=== PATIENT | female | born 1940 | race Caucasian/White ===

== ENCOUNTER 2017-05-02 19:49 | Inpatient (IN) | payer MEDICARE, BC ==
[2017-05-02] MEDS ORDERED: NITROGLYCERIN SL TABS 0.4 MG TAB SUBLINGUAL PRN (20:10)
[2017-05-02] MEDS ORDERED: HEPARIN SODIUM,PORCINE 5,000 UNIT/ML 1 ML VIAL IV PRN (20:10)
[2017-05-02] MEDS ORDERED: MORPHINE SULFATE 4 MG/ML SYRINGE IV PRN (20:10)
[2017-05-02] MEDS ORDERED: ASPIRIN 81 MG PO STA (20:10)
--- NOTE | 2017-05-02 20:14 | ED ---
General Adult HPI - General Chief complaint: Recheck/Abnormal Lab/Rx Stated complaint: Cardiac Time Seen by Provider: 05/02/17 19:56 Source: patient, EMS, RN notes reviewed, old records reviewed Mode of arrival: EMS Limitations: no limitations - History of Present Illness Initial comments: This is a 77-year-old female the ER for evaluation. Patient accepted in transfer for non-ST elevated ME. Patient is chest pain is resolved, patient without shortness of breath. Patient without other significant complaint currently. Per EMS patient has troponin elevated through 3 hour window - Related Data Home Medications Medication Instructions Recorded Confirmed Aspirin 81 mg PO DAILY 05/02/17 05/02/17 Colloidal Oatmeal [Eucerin Eczema 1 applic TOPICAL DAILY@199905/02/17 05/02/17 Relief] Diazepam [Valium] 5 mg PO BID PRN 05/02/17 05/02/17 Donepezil [Aricept] 10 mg PO HS 05/02/17 05/02/17 Gabapentin [Neurontin] 600 mg PO TID 05/02/17 05/02/17 Haloperidol Decanoate [Haldol D] 100 mg IM QMONTH 05/02/17 05/02/17 Hydrochlorothiazide [Hydrodiuril] 25 mg PO DAILY 05/02/17 05/02/17 Levothyroxine Sodium [Synthroid] 25 mcg PO DAILY 05/02/17 05/02/17 Memantine [Namenda] 10 mg PO BID 05/02/17 05/02/17 Mirtazapine [Remeron] 15 mg PO HS 05/02/17 05/02/17 NIFEdipine [Procardia XL] 30 mg PO DAILY 05/02/17 05/02/17 QUEtiapine [SEROquel] 100 mg PO HS 05/02/17 05/02/17 Venlafaxine HCl [Effexor XR] 75 mg PO DAILY 05/02/17 05/02/17 Venlafaxine HCl [Effexor XR] 150 mg PO DAILY 05/02/17 05/02/17 hydrOXYzine HCL [Atarax] 50 mg PO Q6H PRN 05/02/17 05/02/17 traMADol HCL [Ultram] 50 mg PO BID PRN 05/02/17 05/02/17 Allergies Allergy/AdvReac Type Severity Reaction Status Date / Time adhesive Allergy Unknown Verified 05/02/17 20:13 buprenorphine [From Butrans] Allergy Unknown Verified 05/02/17 20:13 losartan Allergy Unknown Verified 05/02/17 20:13 Review of Systems ROS Statement: Those systems with pertinent positive or pertinent negative responses have been documented in the HPI. ROS Other: All systems not noted in ROS Statement are negative. Past Medical History Past Medical History: Cancer, Hypertension Past Surgical History: Back Surgery, Hysterectomy, Orthopedic Surgery Additional Past Surgical History / Comment(s): felix knee,lt lumpectomy Past Psychological History: Anxiety, Depression Smoking Status: Former smoker Past Alcohol Use History: None Reported Past Drug Use History: None Reported General Exam Limitations: no limitations General appearance: alert, in no apparent distress Head exam: Present: atraumatic, normocephalic, normal inspection Eye exam: Present: normal appearance, PERRL, EOMI. Absent: scleral icterus, conjunctival injection, periorbital swelling ENT exam: Present: normal exam, mucous membranes moist Neck exam: Present: normal inspection. Absent: tenderness, meningismus, lymphadenopathy Respiratory exam: Present: normal lung sounds bilaterally. Absent: respiratory distress, wheezes, rales, rhonchi, stridor Cardiovascular Exam: Present: regular rate, normal rhythm, normal heart sounds. Absent: systolic murmur, diastolic murmur, rubs, gallop, clicks GI/Abdominal exam: Present: soft, normal bowel sounds. Absent: distended, tenderness, guarding, rebound, rigid Extremities exam: Present: normal inspection, full ROM, normal capillary refill. Absent: tenderness, pedal edema, joint swelling, calf tenderness Back exam: Present: normal inspection Neurological exam: Present: alert, oriented X3, CN II-XII intact Psychiatric exam: Present: normal affect, normal mood Skin exam: Present: warm, dry, intact, normal color. Absent: rash Course Vital Signs 05/02/17 19:55 Temperature 98.3 F Pulse Rate 80 Respiratory 20 Rate Blood Pressure 146/83 O2 Sat by Pulse 93 L Oximetry - Reevaluation(s) Reevaluation #1: 05/02/17 20:39 Chest or paperwork is thoroughly reviewed EKG Findings - EKG Comments: EKG Findings:: EKG shows normal sinus rhythm rate of 74, NH 122, QRS 90, QTc 461 , no ST elevation Medical Decision Making - Medical Decision Making 77 female the ER for evaluation of chest pain. Persistent chest pain. Patient had elevated troponin and increasing troponin per transferring hospital. Patient at this point is without chest pain Disposition Clinical Impression: NSTEMI (non-ST elevated myocardial infarction) Disposition: ADMITTED IP TO THIS HOSP Condition: Serious Referrals: Woody Stover MD [Primary Care Provider] - 1-2 days
[2017-05-02] MEDS ORDERED: SODIUM CHLORIDE 0.9% 1,000 ML IV STA (20:43)
[2017-05-02] MEDS: HEPARIN SOD,PORK IN 0.45% NACL 25,000 UNIT in 0.45% NACL 1 500ML.BAG IV SCH (21:09)
[2017-05-02] MEDS: METOPROLOL TARTRATE 25 MG TAB PO SCH (21:10)
[2017-05-02 21:25] LABS: Basophils % (A) 0 %; Eosinophils # (A) 0.1 k/uL (0-0.7); Eosinophils % (A) 1 %; HCT 41.6 % (34.0-46.0); Lymphocytes # (A) 2.2 k/uL (1.0-4.8); Lymphocytes % (A) 28 %; MCH 28.5 pg (25.0-35.0); MCHC 33.6 g/dL (31.0-37.0); MCV 84.7 fL (80.0-100.0); Mean Platelet Volume 7.6; Monocytes # (A) 0.4 k/uL (0-1.0); Monocytes % (A) 5 %; Neutrophils # (A) 5.1 k/uL (1.3-7.7); Neutrophils % (A) 64 %; Platelet Count 275 k/uL (150-450); RBC 4.91 m/uL (3.80-5.40); RDW 13.2 % (11.5-15.5); WBC 7.9 k/uL (3.8-10.6)
[2017-05-02 21:40] LABS: INR 1.2 (<1.2); Partial Thromboplastin Time 45.6 sec (22.0-30.0); Prothrombin Time 11.5 sec (9.0-12.0)
[2017-05-02 21:41] LABS: Anion Gap 9 mmol/L; Blood Urea Nitrogen 25 mg/dL (7-17); Carbon Dioxide 29 mmol/L (22-30); Chloride 103 mmol/L (98-107); Glucose 107 mg/dL (74-99); Potassium 3.7 mmol/L (3.5-5.1); Sodium 141 mmol/L (137-145)
[2017-05-02 21:42] LABS: ALT 20 U/L (9-52); AST 21 U/L (14-36); Alkaline Phosphatase 110 U/L (38-126); Calcium 9.7 mg/dL (8.4-10.2); Lipase 119 U/L (23-300); Total Bilirubin 0.4 mg/dL (0.2-1.3); Total Protein 6.9 g/dL (6.3-8.2)
[2017-05-02 21:54] LABS: Creatine Kinase MB 2.3 ng/mL (0.0-2.4)
[2017-05-02 21:57] LABS: Troponin I 0.349 ng/mL (0.000-0.034)
[2017-05-03 03:36] LABS: Platelet Count 231 k/uL (150-450)
[2017-05-03 03:58] LABS: Cholesterol 220 mg/dL (<200); HDL Cholesterol 65 mg/dL (40-60); LDL Cholesterol,Calculated 142 mg/dL (0-99); Triglycerides 65 mg/dL (<150)
[2017-05-03 04:14] LABS: Troponin I 0.272 ng/mL (0.000-0.034)
[2017-05-03] MEDS ORDERED: ASPIRIN 325 MG TAB PO SCH (09:00)
[2017-05-03 10:10] LABS: Creatine Kinase MB 1.9 ng/mL (0.0-2.4)
[2017-05-03 10:18] LABS: Troponin I 0.169 ng/mL (0.000-0.034)
[2017-05-03] MEDS: METOPROLOL TARTRATE 25 MG TAB PO SCH ×2 (10:36→20:09)
[2017-05-03] MEDS: ATORVASTATIN 80 MG TAB PO SCH (10:36)
--- NOTE | 2017-05-03 13:55 | P.CRDCN ---
History of Present Illness History of present illness: Cardiac G consulted for an abnormal troponin. The patient was transferred from [facility]. She was sent there by her primary physician the letter visiting physician at home. According to the from [facility] she was found to have a mild facial droop and she was stumbling and falling and therefore sent to the hospital. A troponin was drawn and this was abnormal the second troponin that was drawn was also abnormal and she was transferred for possible non-Q-wave myocardial infarction. However the note clearly states that she denied any chest discomfort no shortness of breath no palpitations no cardiac symptoms prior to that. However it also states that 3 days prior to this she had a staring spell Review of systems: No fever chills or rigors, no cough, phlegm or expectoration , no nausea, vomiting or diarrhea, no hematuria, dysuria, no musculoskeletal complaints, no strokes or seizures, no skin lesions. When I interviewed her today she categorically denied any chest discomfort no dizziness lightheadedness palpitations or loss of consciousness. However she does carry a diagnosis of dementia. 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 [place] Home medications are reviewed and are documented in the chart ALLERGIES were reviewed and include losartan adhesive tape Past history of hypertension hysterectomy orthopedic surgery lumpectomy Past history of smoking no reported alcohol use On examination she is lying flat in bed very comfortable, answering most questions appropriately Heart rate in the 50s, afebrile 97.3F respirations are normal blood pressure 149/77 and 173/85 mmHg prior blood pressures were within normal limits Abdomen soft nontender Breath sounds are clear no rhonchi no crackles Extremities are warm no edema Twelve-lead ECG the first one showed sinus rhythm no abnormalities no ST segment abnormalities Labs are reviewed Hemoglobin 14, electrolytes normal, BUN 25, creatinine 0.71 Troponins 0.349, 0.272 and 0.169 LFTs normal Electrolytes normal LDL 142, HDL 65, total cholesterol 220 Impression Patient asymptomatic from a cardiac standpoint with abnormal troponins consistent with myocardial injury and a clear downward trend Normal ECG on admission Elevated LDL of 142, elevated total cholesterol 220, high HDL Hypertension ALLERGY to losartan by prior history Suggest 2 baby aspirins Atorvastatin 80 mg by mouth daily Continue metoprolol 2-D echo and Doppler study, preliminary result indicates preserved LV systolic function Watch blood pressure Continue IV heparin and discontinue tomorrow Medical management for CAD In view of her history of facial drooping and history of falls a neurology evaluation would be indicated Carotid studies Past Medical History Past Medical History: Cancer, Hypertension Additional Past Medical History / Comment(s): L breast cancer with lumpectomy and radiation, lumbago, chronic low back pain. History of Any Multi-Drug Resistant Organisms: None Reported Past Surgical History: Back Surgery, Hysterectomy, Orthopedic Surgery Additional Past Surgical History / Comment(s): felix knee arthroscopies ,lt breast lumpectomy. Past Anesthesia/Blood Transfusion Reactions: No Reported Reaction Smoking Status: Former smoker - Past Family History Father Family Medical History: No Reported History Additional Family Medical History / Comment(s): Father was healthy and lived into his 90s. Mother Family Medical History: No Reported History Additional Family Medical History / Comment(s): Mother was healthy and lived to be 94 yrs. Medications and Allergies Home Medications Medication Instructions Recorded Confirmed Type Aspirin 81 mg PO DAILY 05/02/17 05/02/17 History Colloidal Oatmeal [Eucerin Eczema 1 applic TOPICAL DAILY@199905/02/17 05/02/17 History Relief] Diazepam [Valium] 5 mg PO BID PRN 05/02/17 05/02/17 History Donepezil [Aricept] 10 mg PO HS 05/02/17 05/02/17 History Gabapentin [Neurontin] 600 mg PO TID 05/02/17 05/02/17 History Haloperidol Decanoate [Haldol D] 100 mg IM QMONTH 05/02/17 05/02/17 History Hydrochlorothiazide [Hydrodiuril] 25 mg PO DAILY 05/02/17 05/02/17 History Levothyroxine Sodium [Synthroid] 25 mcg PO DAILY 05/02/17 05/02/17 History Memantine [Namenda] 10 mg PO BID 05/02/17 05/02/17 History Mirtazapine [Remeron] 15 mg PO HS 05/02/17 05/02/17 History NIFEdipine [Procardia XL] 30 mg PO DAILY 05/02/17 05/02/17 History QUEtiapine [SEROquel] 100 mg PO HS 05/02/17 05/02/17 History Venlafaxine HCl [Effexor XR] 75 mg PO DAILY 05/02/17 05/02/17 History Venlafaxine HCl [Effexor XR] 150 mg PO DAILY 05/02/17 05/02/17 History hydrOXYzine HCL [Atarax] 50 mg PO Q6H PRN 05/02/17 05/02/17 History traMADol HCL [Ultram] 50 mg PO BID PRN 05/02/17 05/02/17 History Allergies Allergy/AdvReac Type Severity Reaction Status Date / Time adhesive Allergy Unknown Verified 05/02/17 20:13 buprenorphine [From Butrans] Allergy Unknown Verified 05/02/17 20:13 losartan Allergy Unknown Verified 05/02/17 20:13 Physical Exam Vitals: Vital Signs Temp Pulse Pulse Resp BP BP Pulse Ox 05/03/17 10:40 55 L 16 173/85 95 05/03/17 07:50 97.3 F L 58 L 16 149/77 96 05/03/17 06:37 58 L 18 127/52 98 05/03/17 05:35 53 L 18 138/73 96 05/03/17 04:00 45 L 15 125/69 95 05/03/17 03:13 48 L 18 125/65 96 05/03/17 02:00 46 L 15 119/61 94 L 05/03/17 01:00 45 L 20 129/66 97 05/03/17 00:00 45 L 22 126/60 94 L 05/02/17 23:00 58 L 20 134/89 96 05/02/17 22:00 98.6 F 60 20 145/76 96 05/02/17 21:00 59 L 20 125/78 95 05/02/17 19:55 98.3 F 80 20 146/83 93 L Intake and Output 05/02/17 05/03/17 05/03/17 22:59 06:59 14:59 Other: Weight 108.862 kg Results 05/03/17 03:18 05/02/17 21:01 Cardiac Enzymes 05/02/17 05/02/17 05/03/17 Range/Units 21:01 21:01 03:18 AST 21 (14-36) U/L CK-MB (CK-2) 2.3 2.0 (0.0-2.4) ng/mL Troponin I 0.349 H* 0.272 H* (0.000-0.034) ng/mL 05/03/17 Range/Units 09:12 AST (14-36) U/L CK-MB (CK-2) 1.9 (0.0-2.4) ng/mL Troponin I 0.169 H* (0.000-0.034) ng/mL Coagulation 05/02/17 05/03/17 Range/Units 21: 03:18 PT 11.5 (9.0-12.0) sec APTT 45.6 H 51.3 H (22.0-30.0) sec Lipids 05/03/17 Range/Units 03:18 Triglycerides 65 (<150) mg/dL Cholesterol 220 H (<200) mg/dL HDL Cholesterol 65 H (40-60) mg/dL CBC 05/02/17 05/03/17 Range/Units 21: 03:18 WBC 7.9 (3.8-10.6) k/uL RBC 4.91 (3.80-5.40) m/uL Hgb 14.0 (11.4-16.0) gm/dL Hct 41.6 (34.0-46.0) % Plt Count 275 231 (150-450) k/uL Comprehensive Metabolic Panel 05/02/17 Range/Units 21:01 Sodium 141 (137-145) mmol/L Potassium 3.7 (3.5-5.1) mmol/L Chloride 103 (98-107) mmol/L Carbon Dioxide 29 (22-30) mmol/L BUN 25 H (7-17) mg/dL Creatinine 0.71 (0.52-1.04) mg/dL Glucose 107 H (74-99) mg/dL Calcium 9.7 (8.4-10.2) mg/dL AST 21 (14-36) U/L ALT 20 (9-52) U/L Alkaline Phosphatase 110 (38-126) U/L Total Protein 6.9 (6.3-8.2) g/dL Albumin 4.0 (3.5-5.0) g/dL Current Medications Generic Name Dose Route Start Last Admin Trade Name Freq PRN Reason Stop Dose Admin Aspirin 325 mg 05/03/17 09:00 05/03/17 10:36 Aspirin PO 325 mg DAILY JOHANA Administration Atorvastatin Calcium 80 mg 05/03/17 09:00 05/03/17 10:36 Lipitor PO 80 mg DAILY JOHANA Administration Heparin Sodium (Porcine) 0 unit 05/02/17 20:10 Heparin IV Q6HR PRN Low PTT Protocol Heparin Sodium/Sodium Chloride 500 mls @ 20.03 mls/hr 05/02/17 20:15 21:09 25,000 unit/ Sodium Chloride IV 9.2 units/kg/hr .Q24H JOHANA 20.03 mls/hr Protocol Administration 9.2 UNITS/KG/HR Metoprolol Tartrate 25 mg 05/02/17 21:00 05/03/17 10:36 Lopressor PO 25 mg BID JOHANA Administration Morphine Sulfate 4 mg 05/02/17 20:10 Morphine Sulfate (Inj) IV Q5M PRN Chest Pain Nitroglycerin 0.4 mg 05/02/17 20:10 Nitrostat SUBLINGUAL Q5M PRN Chest Pain Intake and Output 05/02/17 05/03/17 05/03/17 22:59 06:59 14:59 Other: Weight 108.862 kg 05/03/17 03:18 05/02/17 21:01
[2017-05-03] MEDS ORDERED: traMADol 50 MG TAB PO PRN (14:33)
[2017-05-03] MEDS ORDERED: MORPHINE ORAL SOLN 10 MG/5 ML CUP PO PRN (14:39)
[2017-05-03] MEDS: GABAPENTIN 300 MG CAP PO SCH ×2 (16:14→20:09)
[2017-05-03] MEDS: NIFEdipine XL 30 MG TAB.ER.24 PO SCH (16:14)
--- NOTE | 2017-05-03 17:47 | US ---
EXAMINATION TYPE: US carotid duplex BILAT DATE OF EXAM: 05/03/2017 COMPARISON: NONE CLINICAL HISTORY: Facial droop. Very confused patient who was unable to cooperate with examiner, technically difficult study. EXAM MEASUREMENTS: RIGHT: Peak Systolic Velocity (PSV) cm/sec ----- Right CCA: 72.9 ----- Right ICA: 64.2 ----- Right ECA: 107.3 ICA/CCA ratio: 0.9 RIGHT: End Diastole cm/sec ----- Right CCA: 12.9 ----- Right ICA: 7.7 ----- Right ECA: 12.1 LEFT: Peak Systolic Velocity (PSV) cm/sec ----- Left CCA: 71.9 ----- Left ICA: 59.2 ----- Left ECA: 89.0 ICA/CCA ratio: 0.8 LEFT: End Diastole cm/sec ----- Left CCA: 14.8 ----- Left ICA: 12.1 ----- Left ECA: 9.9 VERTEBRALS (direction of flow): Right Vertebral: Antegrade Left Vertebral: Antegrade Rhythm: Arrhythmia Unable to obtain distal ICA on left due to poor patient cooperation. No elevated velocities seen bilaterally. IMPRESSION: No hemodynamic significant stenosis of the proximal internal carotid arteries bilaterall y by Doppler criteria within the limitations of the exam, indirect measurement of carotid stenosis. L imited exam.
--- NOTE | 2017-05-03 18:02 | ECHOF ---
Referral Reason:[facility] MEASUREMENTS -------- HEIGHT: 175.3 cm WEIGHT: 112.9 kg BP: RVIDd: 2.8 cm (< 3.3) IVSd: 1.2 cm (0.6 - 1.1) LVIDd: 4.4 cm (3.9 - 5.3) LVPWd: 1.1 cm (0.6 - 1.1) IVSs: 1.4 cm LVIDs: 3.5 cm LVPWs: 1.2 cm LAESV Index (A-L): 23.51 ml/m Ao Diam: 3.4 cm (2.0 - 3.7) AV Cusp: 2.1 cm (1.5 - 2.6) LA Diam: 3.9 cm (2.7 - 3.8) MV EXCURSION: 16.312 mm (> 18.000) MV EF SLOPE: 94 mm/s (70 - 150) EPSS: 0.9 cm MV E Adrian: 0.48 m/s MV DecT: 171 ms MV A Adrian: 0.61 m/s MV E/A Ratio: 0.79 RAP: 5.00 mmHg RVSP: 11.16 mmHg FINDINGS -------- Sinus rhythm. This was a technically adequate study. The left ventricular size is normal. There is mild concentric left ventricular hypertrophy. Overa ll left ventricular systolic function is low-normal with, an EF between 50 - 55 %. The right ventricle is normal in size. Normal LA size by volume 22+/-6 ml/m2. The right atrial size is normal. The aortic valve is trileaflet, and appears structurally normal. No aortic stenosis or regurgitation. Mild mitral regurgitation is present. Mild tricuspid regurgitation present. There is no evidence of pulmonary hypertension. The right v entricular systolic pressure, as measured by Doppler, is 11.16mmHg. The pulmonic valve was not well visualized. The aortic root size is normal. There is no pericardial effusion. CONCLUSIONS -------- 1. The left ventricular size is normal. 2. There is mild concentric left ventricular hypertrophy. 3. Overall left ventricular systolic function is low-normal with, an EF between 50 - 55 %. 4. The aortic valve is trileaflet, and appears structurally normal. No aortic stenosis or regurgitati on. 5. Mild mitral regurgitation is present. 6. Mild tricuspid regurgitation present. 7. There is no evidence of pulmonary hypertension. 8. The right ventricular systolic pressure, as measured by Doppler, is 11.16mmHg. 9. The pulmonic valve was not well visualized. 10. The aortic root size is normal. 11. There is no pericardial effusion. [employer]YCHOLOGIST: Victoria Cisneros RDCS
[2017-05-03] MEDS ORDERED: NON-FORMULARY DRUG (Colloidal Oatmeal [Eucerin Eczema Relief] 1 APPLIC) TOPICAL SCH (20:00)
[2017-05-03] MEDS: MIRTAZAPINE 15 MG TAB PO SCH (20:09)
[2017-05-03] MEDS: DONEPEZIL 10 MG TAB PO SCH (20:09)
[2017-05-03] MEDS: MEMANTINE 10 MG TAB PO SCH (20:09)
[2017-05-03] MEDS: HEPARIN SOD,PORK IN 0.45% NACL 25,000 UNIT in 0.45% NACL 1 500ML.BAG IV SCH (22:14)
--- NOTE | 2017-05-03 22:15 | P.HPIM ---
History of Present Illness H&P Date: 05/03/17 Chief Complaint: Abnormal troponin Patient is a 77 old female with a known history of hypertension, dementia and depression and also history of left breast cancer with lumpectomy and radiation as well as chronic back pain was initially presented to [facility] due to related troponin level. Initially patient presented to [facility] due to facial droop and she was stumbling and falling. Currently patient could not provide any history. Patient does not know why was she was sent to Hospital. Otherwise patient denied any chest pain or shortness of breath. No palpitations. No fever no chills. Denied any nausea vomiting abdominal pain or diarrhea. Denied any hematuria or dysuria. Patient does not have a history of seizures or stroke in the past. Patient is a poor historian and history was taken from the medical records and ER note as well as transfer documents. CT head showed no acute intracranial abnormality. Cerebral Atrophy and chronic small wasn't ischemic changes were noted. EKG showed sinus rhythm. No ST-T wave abnormality Troponin 0.349, 0.272 and 0.169 D-dimer not elevated at 0.28 BNP is pending Review of Systems Complete review of systems could not be obtained from the patient Past Medical History Past Medical History: Cancer, Hypertension Additional Past Medical History / Comment(s): L breast cancer with lumpectomy and radiation, lumbago, chronic low back pain. History of Any Multi-Drug Resistant Organisms: None Reported Past Surgical History: Back Surgery, Hysterectomy, Orthopedic Surgery Additional Past Surgical History / Comment(s): felix knee arthroscopies ,lt breast lumpectomy. Past Anesthesia/Blood Transfusion Reactions: No Reported Reaction Smoking Status: Former smoker - Past Family History Father Family Medical History: No Reported History Additional Family Medical History / Comment(s): Father was healthy and lived into his 90s. Mother Family Medical History: No Reported History Additional Family Medical History / Comment(s): Mother was healthy and lived to be 94 yrs. Medications and Allergies Home Medications Medication Instructions Recorded Confirmed Type Aspirin 81 mg PO DAILY 05/02/17 05/02/17 History Colloidal Oatmeal [Eucerin Eczema 1 applic TOPICAL DAILY@199905/02/17 05/02/17 History Relief] Diazepam [Valium] 5 mg PO BID PRN 05/02/17 05/02/17 History Donepezil [Aricept] 10 mg PO HS 05/02/17 05/02/17 History Gabapentin [Neurontin] 600 mg PO TID 05/02/17 05/02/17 History Haloperidol Decanoate [Haldol D] 100 mg IM QMONTH 05/02/17 05/02/17 History Hydrochlorothiazide [Hydrodiuril] 25 mg PO DAILY 05/02/17 05/02/17 History Levothyroxine Sodium [Synthroid] 25 mcg PO DAILY 05/02/17 05/02/17 History Memantine [Namenda] 10 mg PO BID 05/02/17 05/02/17 History Mirtazapine [Remeron] 15 mg PO HS 05/02/17 05/02/17 History NIFEdipine [Procardia XL] 30 mg PO DAILY 05/02/17 05/02/17 History QUEtiapine [SEROquel] 100 mg PO HS 05/02/17 05/02/17 History Venlafaxine HCl [Effexor XR] 75 mg PO DAILY 05/02/17 05/02/17 History Venlafaxine HCl [Effexor XR] 150 mg PO DAILY 05/02/17 05/02/17 History hydrOXYzine HCL [Atarax] 50 mg PO Q6H PRN 05/02/17 05/02/17 History traMADol HCL [Ultram] 50 mg PO BID PRN 05/02/17 05/02/17 History Allergies Allergy/AdvReac Type Severity Reaction Status Date / Time adhesive Allergy Unknown Verified 05/02/17 20:13 buprenorphine [From Butrans] Allergy Unknown Verified 05/02/17 20:13 losartan Allergy Unknown Verified 05/02/17 20:13 Physical Exam Vitals: Vital Signs Temp Pulse Pulse Resp BP BP Pulse Ox 05/03/17 07:50 97.3 F L 58 L 16 149/77 96 05/03/17 06:37 58 L 18 127/52 98 05/03/17 05:35 53 L 18 138/73 96 05/03/17 04:00 45 L 15 125/69 95 05/03/17 03:13 48 L 18 125/65 96 05/03/17 02:00 46 L 15 119/61 94 L 05/03/17 01:00 45 L 20 129/66 97 05/03/17 00:00 45 L 22 126/60 94 L 05/02/17 23:00 58 L 20 134/89 96 05/02/17 22:00 98.6 F 60 20 145/76 96 05/02/17 21:00 59 L 20 125/78 95 05/02/17 19:55 98.3 F 80 20 146/83 93 L Intake and Output 05/02/17 05/03/17 05/03/17 22:59 06:59 14:59 Other: Weight 108.862 kg PHYSICAL EXAMINATION: Patient is lying in the bed comfortably, no acute distress, awake alert but confused. HEENT: Normocephalic. Neck is supple. Pupils reactive. Nostrils clear. Oral cavity is moist. Ears reveal no drainage. Neck reveals no JVD, carotid bruits, or thyromegaly. CHEST EXAMINATION: Trachea is central. Symmetrical expansion. Lung de paz clear to auscultation and percussion. CARDIAC: Normal S1, S2 with no gallops. No murmurs ABDOMEN: Soft. Bowel sounds normal. No organomegaly. No abdominal bruits. Extremities: reveal no edema. No clubbing or cyanosis Neurologically awake, alert, oriented x1 with well-coordinated movements. No focal deficits noted Skin: No rash or skin lesions. Psychiatric: Cooperative. Could not be assessed completely Musculoskeletal: No joint swelling or deformity. Normal range of motion. Results CBC & Chem 7: 05/03/17 03:18 05/02/17 21:01 Labs: Abnormal Lab Results - Last 24 Hours (Table) 05/02/17 05/02/17 05/02/17 Range/Units 21:01 21:01 21:01 INR 1.2 H (<1.2) APTT 45.6 H (22.0-30.0) sec BUN 25 H (7-17) mg/dL Glucose 107 H (74-99) mg/dL Troponin I 0.349 H* (0.000-0.034) ng/mL Cholesterol (<200) mg/dL LDL Cholesterol, Calc (0-99) mg/dL HDL Cholesterol (40-60) mg/dL 05/03/17 05/03/17 05/03/17 Range/Units 03:18 : 03: INR (<1.2) APTT 51.3 H (22.0-30.0) sec BUN (7-17) mg/dL Glucose (74-99) mg/dL Troponin I 0.272 H* (0.000-0.034) ng/mL Cholesterol 220 H (<200) mg/dL LDL Cholesterol, Calc 142 H (0-99) mg/dL HDL Cholesterol 65 H (40-60) mg/dL 05/03/17 Range/Units 09:12 INR (<1.2) APTT (22.0-30.0) sec BUN (7-17) mg/dL Glucose (74-99) mg/dL Troponin I 0.169 H* (0.000-0.034) ng/mL Cholesterol (<200) mg/dL LDL Cholesterol, Calc (0-99) mg/dL HDL Cholesterol (40-60) mg/dL Thrombosis Risk Factor Assmnt - DVT/VTE Prophylaxis DVT/VTE Prophylaxis: Pharmacologic Prophylaxis ordered - Choose All That Apply Any of the Below Risk Factors Present?: Yes Each Factor Represents 1 point: Obesity (BMI >25) Other Risk Factors: Yes Each Risk Factor Represents 2 Points: Malignancy Each Risk Factor Represents 3 Points: Age 75 years or older Other congenital or acquired thrombophilia - If yes, enter type in comment: No Thrombosis Risk Factor Assessment Total Risk Factor Score: 6 Thrombosis Risk Factor Assessment Level: High Risk Assessment and Plan Assessment: Elevated troponin likely due to non-ST elevated ME. Trending down. Hypertension Hyperlipidemia Dementia Depression Morbid obesity with BMI 35.4 History of breast cancer status post lumpectomy and chemotherapy Stating episode lasted about 20 seconds, one day prior to admission. CT negative for any acute process. Plan: Patient was started on aspirin and statins. On metoprolol. Continue with heparin drip and cardiology evaluation. 2-D echocardiogram was ordered. Further recommendations based on the clinical course. Cardiology recommends medical management at this time. Time with Patient: Greater than 30
[2017-05-04] MEDS: LEVOTHYROXINE 25 MCG TAB PO SCH (05:59)
[2017-05-04 06:48] LABS: Mean Platelet Volume 8.3; Platelet Count 237 k/uL (150-450)
[2017-05-04] MEDS: ASPIRIN 81 MG PO SCH (09:12)
[2017-05-04] MEDS: ATORVASTATIN 80 MG TAB PO SCH (09:12)
[2017-05-04] MEDS: NIFEdipine XL 30 MG TAB.ER.24 PO SCH (09:13)
[2017-05-04] MEDS: MEMANTINE 10 MG TAB PO SCH ×2 (09:13→21:03)
[2017-05-04] MEDS: GABAPENTIN 300 MG CAP PO SCH ×3 (09:13→21:03)
[2017-05-04] MEDS: METOPROLOL TARTRATE 25 MG TAB PO SCH ×2 (09:13→21:03)
[2017-05-04] MEDS: VENLAFAXINE HCL ER 75 MG CAP PO SCH (09:14)
[2017-05-04 15:43] LABS: Appearance,Urine Clear (Clear); Bacteria,Urine Rare /hpf; Bilirubin,Urine Negative (Negative); Blood,Urine Negative (Negative); Color,Urine Light Yellow; Glucose,Urine (UA) Negative (Negative); Ketones,Urine Negative (Negative); Leukocyte Esterase,Urine Negative (Negative); Mucus,Urine Rare /hpf; Nitrite,Urine Positive (Negative); Protein,Urine Negative (Negative); Specific Gravity,Urine 1.005 (1.001-1.035); Urobilinogen,Urine <2.0 mg/dL (<2.0); WBC,Urine 2 /hpf (0-5)
--- NOTE | 2017-05-04 19:53 | P.CNNES ---
History of Present Illness Consult date: 05/04/17 History of Present Illness: The patient is a 77-year-old white female who is a resident of [facility] home who presented to [facility] with facial droop. She has a history of dementia and depression breast cancer and chronic back pain. Also the patient had apparently been stumbling and falling. The patient is currently unaware why she came to the hospital. She denies any focal weakness numbness visual disturbance dizziness or headache. A CAT scan of the head was done which showed no acute abnormality. There was some atrophy and chronic small vessel ischemic changes. The patient was admitted to [facility] with elevated troponin the patient was started on heparin and cardiology was consulted the patient had a carotid ultrasound yesterday which showed no significant stenosis. She had an echocardiogram which showed normal left ventricular size Review of Systems ROS unobtainable: due to mental status Past Medical History Past Medical History: Cancer, Hypertension Additional Past Medical History / Comment(s): L breast cancer with lumpectomy and radiation, lumbago, chronic low back pain. History of Any Multi-Drug Resistant Organisms: None Reported Past Surgical History: Back Surgery, Hysterectomy, Orthopedic Surgery Additional Past Surgical History / Comment(s): felix knee arthroscopies ,lt breast lumpectomy. Past Anesthesia/Blood Transfusion Reactions: No Reported Reaction Smoking Status: Former smoker - Past Family History Father Family Medical History: No Reported History Additional Family Medical History / Comment(s): Father was healthy and lived into his 90s. Mother Family Medical History: No Reported History Additional Family Medical History / Comment(s): Mother was healthy and lived to be 94 yrs. Medications and Allergies Home Medications Medication Instructions Recorded Confirmed Type Aspirin 81 mg PO DAILY 05/02/17 05/02/17 History Colloidal Oatmeal [Eucerin Eczema 1 applic TOPICAL DAILY@199905/02/17 05/02/17 History Relief] Diazepam [Valium] 5 mg PO BID PRN 05/02/17 05/02/17 History Donepezil [Aricept] 10 mg PO HS 05/02/17 05/02/17 History Gabapentin [Neurontin] 600 mg PO TID 05/02/17 05/02/17 History Haloperidol Decanoate [Haldol D] 100 mg IM QMONTH 05/02/17 05/02/17 History Hydrochlorothiazide [Hydrodiuril] 25 mg PO DAILY 05/02/17 05/02/17 History Levothyroxine Sodium [Synthroid] 25 mcg PO DAILY 05/02/17 05/02/17 History Memantine [Namenda] 10 mg PO BID 05/02/17 05/02/17 History Mirtazapine [Remeron] 15 mg PO HS 05/02/17 05/02/17 History NIFEdipine [Procardia XL] 30 mg PO DAILY 05/02/17 05/02/17 History QUEtiapine [SEROquel] 100 mg PO HS 05/02/17 05/02/17 History Venlafaxine HCl [Effexor XR] 75 mg PO DAILY 05/02/17 05/02/17 History Venlafaxine HCl [Effexor XR] 150 mg PO DAILY 05/02/17 05/02/17 History hydrOXYzine HCL [Atarax] 50 mg PO Q6H PRN 05/02/17 05/02/17 History traMADol HCL [Ultram] 50 mg PO BID PRN 05/02/17 05/02/17 History Allergies Allergy/AdvReac Type Severity Reaction Status Date / Time adhesive Allergy Unknown Verified 05/02/17 20:13 buprenorphine [From Butrans] Allergy Unknown Verified 05/02/17 20:13 losartan Allergy Unknown Verified 05/02/17 20:13 Physical Examination - Vital Signs Vital Signs: Vital Signs Temp Pulse Resp BP Pulse Ox 05/04/17 17:15 97.7 F 54 L 16 132/67 95 05/04/17 12:45 53 L 16 163/71 94 L 05/04/17 09:00 97.4 F L 52 L 16 119/58 92 L 05/04/17 04:00 97.6 F 46 L 16 132/65 98 05/04/17 00:00 97.5 F L 46 L 16 132/68 93 L 05/03/17 21:00 51 L 16 159/76 05/03/17 20:00 98.0 F 60 16 149/103 93 L Intake and Output 05/04/17 05/04/17 05/04/17 06:59 14:59 22:59 Intake Total 100 476 160 Balance 100 476 160 Intake: IV 160 Heparin Sod,Pork in 0.45% 160 NaCl 25,000 unit In 0.45 % NaCl 1 500ml.bag @ 9.2 UNITS/KG/HR 20.03 mls/hr IV .Q24H [facility] Rx#: [id number] Oral 100 476 Other: Voiding Method Bedside Commode Bedside Commode Bedside Commode # Voids 0 1 1 Weight 80.5 kg 80.5 kg Patient Weight 05/05/17 06:59 Weight 80.5 kg - Constitutional General appearance: average body habitus - EENT EENT: PERRL, hearing intact, vision intact - Respiratory Respiratory: lungs clear - Cardiovascular Cardiovascular: regular rate - Integumentary Integumentary: normal - Neurologic Neurologic exam mental status: Patient was awake alert oriented to person she knew the hospital she knew the year she was unable to give the month she was able to do only simple addition was no a aphasia or dysarthria Cranial nerve examination: PERRL, EOMI, VFF, face symmetric, tongue midline Speech examination: intact Sensorimotor examination: intact Detailed motor examination: grossly full strength in all extremities - Psychiatric Psychiatric: cooperative Results - Laboratory Findings CBC and BMP: 05/04/17 06:07 05/02/17 21:01 Abnormal Lab Findings: Abnormal Labs 05/02/17 05/02/17 05/02/17 21:01 21:01 21:01 INR 1.2 H APTT 45.6 H BUN 25 H Glucose 107 H Troponin I 0.349 H* Cholesterol LDL Cholesterol, Calc HDL Cholesterol Urine Nitrite Urine Bacteria Urine Mucus 05/03/17 05/03/17 05/03/17 03:18 03:18 03:18 INR APTT 51.3 H BUN Glucose Troponin I 0.272 H* Cholesterol 220 H LDL Cholesterol, Calc 142 H HDL Cholesterol 65 H Urine Nitrite Urine Bacteria Urine Mucus 05/03/17 05/04/17 05/04/17 09:12 06:07 15:18 INR APTT 58.8 H BUN Glucose Troponin I 0.169 H* Cholesterol LDL Cholesterol, Calc HDL Cholesterol Urine Nitrite Positive H Urine Bacteria Rare H Urine Mucus Rare H Assessment and Plan (1) NSTEMI (non-ST elevated myocardial infarction) Current Visit: Yes Status: Acute SNOMED Code(s): 916720052 (2) TIA (transient ischemic attack) Current Visit: Yes Status: Acute Code(s): G45.9 - TRANSIENT CEREBRAL ISCHEMIC ATTACK, UNSPECIFIED SNOMED Code(s): 832793656 (3) Dementia Current Visit: Yes Status: Chronic Code(s): F03.90 - UNSPECIFIED DEMENTIA WITHOUT BEHAVIORAL DISTURBANCE SNOMED Code(s): 68832902 Plan: The patient is a 77-year-old woman who was admitted to the hospital with elevated troponin. She was found to have a [place]. The patient is evaluated by neurology because of history of facial droop. The patient may have had a TIA. She has had a carotid ultrasound and echocardiogram which were unremarkable. She has been started on 2 baby aspirin daily. Her risk factors for stroke include hypertension recommend physical therapy to assess gait. Recommend further evaluation with MRI of the brain which can be done outpatient
[2017-05-04] MEDS: HEPARIN SOD,PORK IN 0.45% NACL 25,000 UNIT in 0.45% NACL 1 500ML.BAG IV SCH (21:02)
[2017-05-04] MEDS: MIRTAZAPINE 15 MG TAB PO SCH (21:03)
[2017-05-04] MEDS: DONEPEZIL 10 MG TAB PO SCH (21:03)
[2017-05-05] MEDS: HEPARIN SOD,PORK IN 0.45% NACL 25,000 UNIT in 0.45% NACL 1 500ML.BAG IV SCH (01:20)
[2017-05-05 06:29] LABS: Mean Platelet Volume 8.4; Platelet Count 207 k/uL (150-450)
[2017-05-05] MEDS: LEVOTHYROXINE 25 MCG TAB PO SCH (07:04)
[2017-05-05] MEDS: ASPIRIN 81 MG PO SCH (09:32)
[2017-05-05] MEDS: GABAPENTIN 300 MG CAP PO SCH ×3 (09:32→20:30)
[2017-05-05] MEDS: ATORVASTATIN 80 MG TAB PO SCH (09:32)
[2017-05-05] MEDS: MEMANTINE 10 MG TAB PO SCH ×2 (09:32→20:30)
[2017-05-05] MEDS: METOPROLOL TARTRATE 25 MG TAB PO SCH ×2 (09:32→20:30)
[2017-05-05] MEDS: VENLAFAXINE HCL ER 75 MG CAP PO SCH (09:33)
[2017-05-05] MEDS: NIFEdipine XL 30 MG TAB.ER.24 PO SCH (09:33)
--- NOTE | 2017-05-05 13:57 | P.PN ---
Subjective Patient is doing well from a chronic standpoint. She is sitting up at the edge of the bed eating breakfast. She has no chest discomfort no dizziness lightheadedness or palpitations On examination she is afebrile 97.7F pulse rate in the 50s blood pressure 138/ 65 mmHg Heart sounds S1 and S2 are normal Breath sounds are clear no rhonchi no crackles No murmurs or gallops no rub Abdomen soft Impression Likely non-Q-wave myocardial infarction Elevated LDL Hypertension Plan Medical management for CAD and non-Q-wave myocardial infarction DC heparin today 2-D echo was reviewed and shows preserved LV size and systolic function Objective - Vital Signs Vital signs: Vital Signs Temp 97.7 F 05/05/17 11:33 Pulse 51 L 05/05/17 11:33 Resp 18 05/05/17 11:33 BP 138/65 05/05/17 11:33 Pulse Ox 95 05/05/17 11:33 Intake & Output 05/04/17 05/05/17 05/05/17 18:59 06:59 18:59 Intake Total 636 1140 118 Output Total 300 Balance 636 840 118 Weight 80.5 kg 80 kg Intake: IV 160 160 Heparin Sod,Pork in 0.45% 160 160 NaCl 25,000 unit In 0.45 % NaCl 1 500ml.bag @ 9.2 UNITS/KG/HR 20.03 mls/hr IV .Q24H [facility] Rx#: [id number] Intake, IV Titration 500 Amount Heparin Sod,Pork in 0.45% 500 NaCl 25,000 unit In 0.45 % NaCl 1 500ml.bag @ 9.2 UNITS/KG/HR 20.03 mls/hr IV .Q24H [facility] Rx#: [id number] Oral 476 480 118 Output: Urine 300 Other: Voiding Method Bedside Commode Toilet Toilet Bedside Commode Bedside Commode Diaper Diaper # Voids 1 1 - Labs CBC & Chem 7: 05/05/17 06:04 05/02/17 21:01 Labs: Abnormal Lab Results - Last 24 Hours (Table) 05/04/17 05/05/17 Range/Units 15:18 06:04 APTT 52.3 H (22.0-30.0) sec Urine Nitrite Positive H (Negative) Urine Bacteria Rare H (None) /hpf Urine Mucus Rare H (None) /hpf Microbiology - Last 24 Hours (Table) 05/04/17 15:18 Urine Culture - Preliminary Urine,Catheterized
--- NOTE | 2017-05-05 14:06 | P.PN ---
Subjective Progress Note Date: 05/05/17 The patient is a 77-year-old woman admitted to the hospital with possible TIA and acute [place]. He shouldn't has no complaints. Her facial droop was transient. He has had a carotid ultrasound and echocardiogram which are unremarkable. She is currently on aspirin. She does have underlying dementia. She is on Namenda at home as well as Aricept. She resides in an [facility] home. Her main risk factor for stroke is hypertension and currently heart disease Objective - Vital Signs Vital signs: Vital Signs Temp 97.7 F 05/05/17 11:33 Pulse 51 L 05/05/17 11:33 Resp 18 05/05/17 11:33 BP 138/65 05/05/17 11:33 Pulse Ox 95 05/05/17 11:33 Intake & Output 05/04/17 05/05/17 05/05/17 18:59 06:59 18:59 Intake Total 636 1140 118 Output Total 300 Balance 636 840 118 Weight 80.5 kg 80 kg Intake: IV 160 160 Heparin Sod,Pork in 0.45% 160 160 NaCl 25,000 unit In 0.45 % NaCl 1 500ml.bag @ 9.2 UNITS/KG/HR 20.03 mls/hr IV .Q24H [facility] Rx#: [id number] Intake, IV Titration 500 Amount Heparin Sod,Pork in 0.45% 500 NaCl 25,000 unit In 0.45 % NaCl 1 500ml.bag @ 9.2 UNITS/KG/HR 20.03 mls/hr IV .Q24H [facility] Rx#: [id number] Oral 476 480 118 Output: Urine 300 Other: Voiding Method Bedside Commode Toilet Toilet Bedside Commode Bedside Commode Diaper Diaper # Voids 1 1 - Constitutional General appearance: Present: cooperative - EENT ENT: Present: hearing grossly normal - Respiratory Respiratory: bilateral: CTA - Cardiovascular Rhythm: regular - Neurologic Neurologic Comment(s): Mental status she was awake alert and oriented to the year or the month and the place. He did have some underlying cognitive impairment. Was no a aphasia or dysarthria Neurologic: Present: CNII-XII intact - Musculoskeletal Musculoskeletal: Present: strength equal bilaterally - Psychiatric Psychiatric: Present: A&O x's 3 - Labs CBC & Chem 7: 05/05/17 06:04 05/02/17 21:01 Labs: Abnormal Lab Results - Last 24 Hours (Table) 05/04/17 05/05/17 Range/Units 15:18 06:04 APTT 52.3 H (22.0-30.0) sec Urine Nitrite Positive H (Negative) Urine Bacteria Rare H (None) /hpf Urine Mucus Rare H (None) /hpf Microbiology - Last 24 Hours (Table) 05/04/17 15:18 Urine Culture - Preliminary Urine,Catheterized Assessment and Plan (1) NSTEMI (non-ST elevated myocardial infarction) Current Visit: Yes Status: Acute SNOMED Code(s): 810715257 (2) TIA (transient ischemic attack) Current Visit: Yes Status: Acute Code(s): G45.9 - TRANSIENT CEREBRAL ISCHEMIC ATTACK, UNSPECIFIED SNOMED Code(s): 531309266 (3) Dementia Current Visit: Yes Status: Chronic Code(s): F03.90 - UNSPECIFIED DEMENTIA WITHOUT BEHAVIORAL DISTURBANCE SNOMED Code(s): 99613154 Plan: The patient is a 77-year-old woman who was admitted to the hospital with elevated troponin. She was found to have a [place]. The patient is evaluated by neurology because of history of facial droop. The patient may have had a TIA. She has had a carotid ultrasound and echocardiogram which were unremarkable. She has been started on 2 baby aspirin daily. Continue current medical management
[2017-05-05] MEDS: DONEPEZIL 10 MG TAB PO SCH (20:30)
[2017-05-05] MEDS: MIRTAZAPINE 15 MG TAB PO SCH (20:30)
--- NOTE | 2017-05-05 21:59 | P.PN ---
Subjective Progress Note Date: 05/04/17 Principal diagnosis: Acute non-ST elevated MA Patient is a 77 old female with a known history of hypertension, dementia and depression and also history of left breast cancer with lumpectomy and radiation as well as chronic back pain was initially presented to [facility] due to related troponin level. Initially patient presented to [facility] due to facial droop and she was stumbling and falling. Currently patient could not provide any history. Patient does not know why was she was sent to Hospital. Otherwise patient denied any chest pain or shortness of breath. No palpitations. No fever no chills. Denied any nausea vomiting abdominal pain or diarrhea. Denied any hematuria or dysuria. Patient does not have a history of seizures or stroke in the past. Patient is a poor historian and history was taken from the medical records and ER note as well as transfer documents. CT head showed no acute intracranial abnormality. Cerebral Atrophy and chronic small wasn't ischemic changes were noted. EKG showed sinus rhythm. No ST-T wave abnormality Troponin 0.349, 0.272 and 0.169 D-dimer not elevated at 0.28 05/04/2017 Patient denied any complaints of chest pain or shortness of breath. Patient is being continued on heparin drip. Neurology has seen the patient due to facial droop and staring for [address] [facility] home. Recommended aspirin and this time. CT and carotid duplex showed no acute abnormality. Otherwise patient is tolerating oral diet and is clinically improving. Patient is more awake and oriented. All other review of systems negative except the above Current medications reviewed. Objective - Vital Signs Vital signs: Vital Signs Temp 97.0 F L 05/04/17 20:00 Pulse 79 05/04/17 20:00 Resp 20 05/04/17 20:00 BP 171/86 05/04/17 20:00 Pulse Ox 92 L 05/04/17 20:00 Intake & Output 05/04/17 05/04/17 05/05/17 06:59 18:59 06:59 Intake Total 600 636 Balance 600 636 Weight 80.5 kg 80.5 kg 80.5 kg Intake: IV 160 Heparin Sod,Pork in 0.45% 160 NaCl 25,000 unit In 0.45 % NaCl 1 500ml.bag @ 9.2 UNITS/KG/HR 20.03 mls/hr IV .Q24H [facility] Rx#: [id number] Intake, IV Titration 500 Amount Heparin Sod,Pork in 0.45% 500 NaCl 25,000 unit In 0.45 % NaCl 1 500ml.bag @ 9.2 UNITS/KG/HR 20.03 mls/hr IV .Q24H [facility] Rx#: [id number] Oral 100 476 Other: Voiding Method Bedside Commode Bedside Commode Toilet Bedside Commode Diaper # Voids 0 1 1 - Exam Patient is lying in the bed comfortably, no acute distress, awake alert and oriented. HEENT: Normocephalic. Neck is supple. Pupils reactive. Nostrils clear. Oral cavity is moist. Ears reveal no drainage. Neck reveals no JVD, carotid bruits, or thyromegaly. CHEST EXAMINATION: Trachea is central. Symmetrical expansion. Lung de paz clear to auscultation and percussion. CARDIAC: Normal S1, S2 with no gallops. No murmurs ABDOMEN: Soft. Bowel sounds normal. No organomegaly. No abdominal bruits. Extremities: reveal no edema. No clubbing or cyanosis Neurologically awake, alert, oriented x2 with well-coordinated movements. No focal deficits noted Skin: No rash or skin lesions. Psychiatric: Cooperative. Could not be assessed completely Musculoskeletal: No joint swelling or deformity. Normal range of motion. - Labs CBC & Chem 7: 05/05/17 06:04 05/02/17 21:01 Labs: Abnormal Lab Results - Last 24 Hours (Table) 05/04/17 05/04/17 Range/Units 06:07 15:18 APTT 58.8 H (22.0-30.0) sec Urine Nitrite Positive H (Negative) Urine Bacteria Rare H (None) /hpf Urine Mucus Rare H (None) /hpf Microbiology - Last 24 Hours (Table) 05/04/17 15:18 Urine Culture - Preliminary Urine,Catheterized Assessment and Plan Assessment: Elevated troponin likely due to non-ST elevated MA. Troponin Trending down. Acute facial droop resolved at this time. Likely due to TIA. Carotid duplex and CT head negative Hypertension Hyperlipidemia Dementia Depression Morbid obesity with BMI 35.4 History of breast cancer status post lumpectomy and chemotherapy Staring episode lasted about 20 seconds, one day prior to admission. CT negative for any acute process. Plan: Patient was started on aspirin and statins. On metoprolol. Continue with heparin drip and cardiology evaluation. 2-D echocardiogram was ordered. Further recommendations based on the clinical course. Cardiology recommends medical management at this time. EEG report is pending at this time. Time with Patient: Greater than 30
--- NOTE | 2017-05-05 22:01 | P.PN ---
Subjective Progress Note Date: 05/05/17 Principal diagnosis: Acute non-ST elevated AK Patient is a 77 old female with a known history of hypertension, dementia and depression and also history of left breast cancer with lumpectomy and radiation as well as chronic back pain was initially presented to [facility] due to related troponin level. Initially patient presented to [facility] due to facial droop and she was stumbling and falling. Currently patient could not provide any history. Patient does not know why was she was sent to Hospital. Otherwise patient denied any chest pain or shortness of breath. No palpitations. No fever no chills. Denied any nausea vomiting abdominal pain or diarrhea. Denied any hematuria or dysuria. Patient does not have a history of seizures or stroke in the past. Patient is a poor historian and history was taken from the medical records and ER note as well as transfer documents. CT head showed no acute intracranial abnormality. Cerebral Atrophy and chronic small wasn't ischemic changes were noted. EKG showed sinus rhythm. No ST-T wave abnormality Troponin 0.349, 0.272 and 0.169 D-dimer not elevated at 0.28 05/04/2017 Patient denied any complaints of chest pain or shortness of breath. Patient is being continued on heparin drip. Neurology has seen the patient due to facial droop and staring for 20 seconds at [facility] home. Recommended aspirin and this time. CT and carotid duplex showed no acute abnormality. Otherwise patient is tolerating oral diet and is clinically improving. Patient is more awake and oriented. 05/05/2017 Patient denied any new complaints today. Awake and oriented and is able to provide history today. Heparin will be discontinued and 2-D echo report showed normal LV function. No fever no chills. No chest pain or shortness of breath. No other acute overnight issues. All other review of systems negative except the above Current medications reviewed. Objective - Vital Signs Vital signs: Vital Signs Temp 97.1 F L 05/05/17 18:49 Pulse 78 05/05/17 18:49 Resp 18 05/05/17 18:49 BP 162/87 05/05/17 18:49 Pulse Ox 96 05/05/17 18:49 Intake & Output 05/05/17 05/05/17 05/06/17 06:59 18:59 07:59 Intake Total 1140 844 Output Total 300 450 Balance 840 394 Weight 80 kg Intake: IV 160 Heparin Sod,Pork in 0.45% 160 NaCl 25,000 unit In 0.45 % NaCl 1 500ml.bag @ 9.2 UNITS/KG/HR 20.03 mls/hr IV .Q24H [facility] Rx#: [id number] Intake, IV Titration 500 Amount Heparin Sod,Pork in 0.45% 500 NaCl 25,000 unit In 0.45 % NaCl 1 500ml.bag @ 9.2 UNITS/KG/HR 20.03 mls/hr IV .Q24H [facility] Rx#: [id number] Oral 480 844 Output: Urine 300 450 Other: Voiding Method Toilet Toilet Bedside Commode Bedside Commode Diaper Diaper # Voids 1 4 - Exam Patient is lying in the bed comfortably, no acute distress, awake alert and oriented. HEENT: Normocephalic. Neck is supple. Pupils reactive. Nostrils clear. Oral cavity is moist. Ears reveal no drainage. Neck reveals no JVD, carotid bruits, or thyromegaly. CHEST EXAMINATION: Trachea is central. Symmetrical expansion. Lung de paz clear to auscultation and percussion. CARDIAC: Normal S1, S2 with no gallops. No murmurs ABDOMEN: Soft. Bowel sounds normal. No organomegaly. No abdominal bruits. Extremities: reveal no edema. No clubbing or cyanosis Neurologically awake, alert, oriented x2 with well-coordinated movements. No focal deficits noted Skin: No rash or skin lesions. Psychiatric: Cooperative. Could not be assessed completely Musculoskeletal: No joint swelling or deformity. Normal range of motion. - Labs CBC & Chem 7: 05/05/17 06:04 05/02/17 21:01 Labs: Abnormal Lab Results - Last 24 Hours (Table) 05/05/17 Range/Units 06:04 APTT 52.3 H (22.0-30.0) sec Microbiology - Last 24 Hours (Table) 05/04/17 15:18 Urine Culture - Preliminary Urine,Catheterized Assessment and Plan Assessment: Elevated troponin likely due to non-ST elevated AK. Troponin Trending down. Acute facial droop resolved at this time. Likely due to TIA. Carotid duplex and CT head negative Hypertension Hyperlipidemia Dementia Depression Morbid obesity with BMI 35.4 History of breast cancer status post lumpectomy and chemotherapy Staring episode lasted about 20 seconds, one day prior to admission. CT negative for any acute process. Plan: Patient was started on aspirin and statins. On metoprolol. Heparin drip discontinued today.. 2-D echocardiogram showed normal LV function. Further recommendations based on the clinical course. Cardiology recommends medical management at this time. EEG report is pending at this time. Time with Patient: Greater than 30
--- NOTE | 2017-05-05 23:31 | EEG ---
ELECTROENCEPHALOGRAM REPORT DATE OF EE05/04/2017. REFERRING PHYSICIAN: Dr. Cabezas. CONSULTING AND INTERPRETING PHYSICIAN: Dr. Piedad Yuan. INDICATION FOR EXAMINATION: This patient is a 77-year-old female being evaluated for altered mental status and history of dementia. AGE: 77. EEG FINDINGS: A routine 21 channel awake digital EEG recording was accomplished utilizing the 10-20 international system with bipolar and referential montages. The background activity in the most alert resting state consists of a low to medium amplitude, poorly developed and poorly sustained 5-6 Hz activity over the posterior head regions. This posterior rhythm attenuates to eye opening. There is a small amount of low amplitude 18-20 Hz beta activity seen maximally over the anterior head regions. Muscle and movement artifact was observed on a few occasions during the tracing. Hyperventilation was not performed. Photic stimulation at flash frequencies of 2-30 Hz produced a minimal occipital driving response. No epileptiform discharges were seen. IMPRESSION: This EEG is moderately abnormal in a diffuse fashion due to slowing of the EEG background. The EEG failed to reveal any focal, lateralized or epileptiform abnormalities. Clinical correlation is recommended. MMODL / IJN: [id number] /
[2017-05-06] MEDS: LEVOTHYROXINE 25 MCG TAB PO SCH (06:30)
[2017-05-06 07:05] LABS: Basophils % (A) 0 %; Eosinophils # (A) 0.2 k/uL (0-0.7); Eosinophils % (A) 2 %; HCT 38.7 % (34.0-46.0); HGB 12.8 gm/dL (11.4-16.0); Lymphocytes # (A) 1.8 k/uL (1.0-4.8); Lymphocytes % (A) 26 %; MCH 28.6 pg (25.0-35.0); MCHC 33.1 g/dL (31.0-37.0); MCV 86.5 fL (80.0-100.0); Monocytes # (A) 0.4 k/uL (0-1.0); Monocytes % (A) 6 %; Neutrophils # (A) 4.5 k/uL (1.3-7.7); Neutrophils % (A) 64 %; Platelet Count 242 k/uL (150-450); RBC 4.47 m/uL (3.80-5.40); RDW 13.4 % (11.5-15.5)
[2017-05-06 07:18] LABS: Anion Gap 7 mmol/L; Blood Urea Nitrogen 18 mg/dL (7-17); Calcium 9.5 mg/dL (8.4-10.2); Carbon Dioxide 31 mmol/L (22-30); Chloride 106 mmol/L (98-107); Glucose 106 mg/dL (74-99); Potassium 3.8 mmol/L (3.5-5.1); Sodium 144 mmol/L (137-145)
[2017-05-06] MEDS: ASPIRIN 81 MG PO SCH (08:52)
[2017-05-06] MEDS: ATORVASTATIN 80 MG TAB PO SCH (08:52)
[2017-05-06] MEDS: GABAPENTIN 300 MG CAP PO SCH ×3 (08:52→22:14)
[2017-05-06] MEDS: HEPARIN SODIUM,PORCINE 5,000 UNIT/ML 1 ML VIAL SQ SCH ×2 (08:52→22:14)
[2017-05-06] MEDS: VENLAFAXINE HCL ER 75 MG CAP PO SCH (08:53)
[2017-05-06] MEDS: MEMANTINE 10 MG TAB PO SCH ×2 (08:53→22:14)
[2017-05-06] MEDS: CARVEDILOL 3.125 MG TAB PO SCH ×2 (08:55→18:53)
--- NOTE | 2017-05-06 10:57 | P.PN ---
Subjective Patient looks very comfortable. No chest discomfort no dizziness lightheadedness palpitations. On examination she is afebrile 98.63 Fahrenheit pulse rate in the 60s blood pressure 179/85 mmHg and 140/72 mmHg the overall blood pressure trend shows she does have hypertension, elevated blood pressures On examination heart sounds are normal no murmurs or gallops Breath sounds are clear Abdomen soft Extremities warm no edema Impression Likely non-Q-wave myocardial infarctions Hypertension Elevated LDL Plan continue atorvastatin, carvedilol, baby aspirins and I will increase the dose of amlodipine to 10 mg by mouth daily Monitor blood pressure Objective - Vital Signs Vital signs: Vital Signs Temp 98.6 F 05/06/17 08:00 Pulse 64 05/06/17 08:00 Resp 18 05/06/17 08:00 BP 179/85 05/06/17 08:00 Pulse Ox 96 05/06/17 08:00 Intake & Output 05/05/17 05/06/17 05/06/17 17:59 06:59 18:59 Intake Total 250 Output Total Balance 250 Weight Intake: Oral 250 Output: Urine Other: Voiding Method Toilet Bedside Commode Diaper # Voids - Labs CBC & Chem 7: 05/06/17 06:19 05/06/17 06:19 Labs: Abnormal Lab Results - Last 24 Hours (Table) 05/06/17 Range/Units 06:19 Carbon Dioxide 31 H (22-30) mmol/L BUN 18 H (7-17) mg/dL Glucose 106 H (74-99) mg/dL
[2017-05-06] MEDS ORDERED: amLODIPine 5 MG TAB PO SCH (12:00)
[2017-05-06] MEDS: amLODIPine 10 MG TAB PO SCH (12:01)
[2017-05-06] MEDS: DONEPEZIL 10 MG TAB PO SCH (22:14)
[2017-05-06] MEDS: MIRTAZAPINE 15 MG TAB PO SCH (22:14)
[2017-05-07] MEDS: LEVOTHYROXINE 25 MCG TAB PO SCH (06:43)
[2017-05-07] MEDS: CARVEDILOL 3.125 MG TAB PO SCH (06:43)
[2017-05-07] MEDS: HEPARIN SODIUM,PORCINE 5,000 UNIT/ML 1 ML VIAL SQ SCH (08:08)
[2017-05-07] MEDS: VENLAFAXINE HCL ER 75 MG CAP PO SCH (08:08)
[2017-05-07] MEDS: MEMANTINE 10 MG TAB PO SCH (08:08)
[2017-05-07] MEDS: GABAPENTIN 300 MG CAP PO SCH (08:08)
[2017-05-07] MEDS: amLODIPine 10 MG TAB PO SCH (08:08)
[2017-05-07] MEDS: ASPIRIN 81 MG PO SCH (08:08)
[2017-05-07] MEDS: ATORVASTATIN 80 MG TAB PO SCH (08:08)
[2017-05-07 08:32] VITALS: RESP 16; TEMP 97
[2017-05-07 14:44] VITALS: BP 120/61; PULSE 71
[2017-05-07 15:14] VITALS: BMI 28.6
--- NOTE | 2017-05-07 22:17 | P.PN ---
Subjective Progress Note Date: 05/06/17 Principal diagnosis: Acute non-ST elevated NM Patient is a 77 old female with a known history of hypertension, dementia and depression and also history of left breast cancer with lumpectomy and radiation as well as chronic back pain was initially presented to [facility] due to related troponin level. Initially patient presented to [facility] due to facial droop and she was stumbling and falling. Currently patient could not provide any history. Patient does not know why was she was sent to Hospital. Otherwise patient denied any chest pain or shortness of breath. No palpitations. No fever no chills. Denied any nausea vomiting abdominal pain or diarrhea. Denied any hematuria or dysuria. Patient does not have a history of seizures or stroke in the past. Patient is a poor historian and history was taken from the medical records and ER note as well as transfer documents. CT head showed no acute intracranial abnormality. Cerebral Atrophy and chronic small wasn't ischemic changes were noted. EKG showed sinus rhythm. No ST-T wave abnormality Troponin 0.349, 0.272 and 0.169 D-dimer not elevated at 0.28 05/04/2017 Patient denied any complaints of chest pain or shortness of breath. Patient is being continued on heparin drip. Neurology has seen the patient due to facial droop and staring for 20 seconds at [facility]. Recommended aspirin and this time. CT and carotid duplex showed no acute abnormality. Otherwise patient is tolerating oral diet and is clinically improving. Patient is more awake and oriented. 05/05/2017 Patient denied any new complaints today. Awake and oriented and is able to provide history today. Heparin will be discontinued and 2-D echo report showed normal LV function. No fever no chills. No chest pain or shortness of breath. No other acute overnight issues. 05/06/2017 Patient denied any new complaints today. Otherwise more awake and oriented. Anticipate discharged to [facility] tomorrow. Blood pressure is fairly controlled All other review of systems negative except the above Current medications reviewed. Objective - Vital Signs Vital signs: Vital Signs Temp 97 F L 05/07/17 08:00 Pulse 71 05/07/17 12:00 Resp 16 05/07/17 12:00 BP 120/61 05/07/17 12:00 Pulse Ox 93 L 05/07/17 12:00 Intake & Output 05/07/17 05/07/17 05/08/17 06:59 18:59 06:59 Intake Total 100 480 Balance 100 480 Weight 88 kg 88 kg Intake: Oral 100 480 Other: Voiding Method Toilet Toilet Bedside Commode Bedside Commode Diaper Diaper # Voids 1 1 - Exam Patient is lying in the bed comfortably, no acute distress, awake alert and oriented. HEENT: Normocephalic. Neck is supple. Pupils reactive. Nostrils clear. Oral cavity is moist. Ears reveal no drainage. Neck reveals no JVD, carotid bruits, or thyromegaly. CHEST EXAMINATION: Trachea is central. Symmetrical expansion. Lung de paz clear to auscultation and percussion. CARDIAC: Normal S1, S2 with no gallops. No murmurs ABDOMEN: Soft. Bowel sounds normal. No organomegaly. No abdominal bruits. Extremities: reveal no edema. No clubbing or cyanosis Neurologically awake, alert, oriented x2 with well-coordinated movements. No focal deficits noted Skin: No rash or skin lesions. Psychiatric: Cooperative. Could not be assessed completely Musculoskeletal: No joint swelling or deformity. Normal range of motion. - Labs CBC & Chem 7: 05/06/17 06:19 05/06/17 06:19 Labs: Microbiology - Last 24 Hours (Table) 05/04/17 15:18 Urine Culture - Final Urine,Catheterized Staphylococcus simulans Assessment and Plan Assessment: Elevated troponin likely due to non-ST elevated NM. Troponin Trending down. Acute facial droop resolved at this time. Likely due to TIA. Carotid duplex and CT head negative Hypertension Hyperlipidemia Dementia Depression Morbid obesity with BMI 35.4 History of breast cancer status post lumpectomy and chemotherapy Staring episode lasted about 20 seconds, one day prior to admission. CT negative for any acute process. Plan: Patient was started on aspirin and statins. On metoprolol changed to Coreg. Added Norvasc for better blood pressure control. Heparin drip discontinued.. 2 -D echocardiogram showed normal LV function. Further recommendations based on the clinical course. Cardiology recommends medical management at this time. EEG report is pending at this time. Time with Patient: Greater than 30
--- NOTE | 2017-05-07 22:19 | P.DS ---
Providers Date of admission: 05/02/17 20:10 Expected date of discharge: 05/07/17 Attending physician: Roberto Cabezas Consults: 05/02/17 20:10 Consult Physician Urgent Consulting Provider: Tamara Inman Consult Reason/Comments: [email or web address] Do you want consulting provider notified?: Yes 05/04/17 09:08 Consult Physician Routine Consulting Provider: Jocelyne Yuan Consult Reason/Comments: Stumbling/weak/facial droop at [facility] Do you want consulting provider notified?: Yes Primary care physician: Woody Stover [facility] Course: Discharge diagnosis Elevated troponin likely due to non-ST elevated CO. Troponin Trending down. Acute facial droop resolved at this time. Likely due to TIA. Carotid duplex and CT head negative Hypertension Hyperlipidemia Dementia Depression Morbid obesity with BMI 35.4 History of breast cancer status post lumpectomy and chemotherapy Staring episode lasted about 20 seconds, one day prior to admission. CT negative for any acute process. EEG showed no seizure activity Hospital course Patient is a 77 old female with a known history of hypertension, dementia and depression and also history of left breast cancer with lumpectomy and radiation as well as chronic back pain was initially presented to [facility] due to related troponin level. Initially patient presented to [facility] due to facial droop and she was stumbling and falling. Currently patient could not provide any history. Patient does not know why was she was sent to Hospital. Otherwise patient denied any chest pain or shortness of breath. No palpitations. No fever no chills. Denied any nausea vomiting abdominal pain or diarrhea. Denied any hematuria or dysuria. Patient does not have a history of seizures or stroke in the past. Patient is a poor historian and history was taken from the medical records and ER note as well as transfer documents. CT head showed no acute intracranial abnormality. Cerebral Atrophy and chronic small wasn't ischemic changes were noted. EKG showed sinus rhythm. No ST-T wave abnormality Troponin 0.349, 0.272 and 0.169 D-dimer not elevated at 0.28 05/04/2017 Patient denied any complaints of chest pain or shortness of breath. Patient is being continued on heparin drip. Neurology has seen the patient due to facial droop and staring for 20 seconds at [facility] home. Recommended aspirin and this time. CT and carotid duplex showed no acute abnormality. Otherwise patient is tolerating oral diet and is clinically improving. Patient is more awake and oriented. 05/05/2017 Patient denied any new complaints today. Awake and oriented and is able to provide history today. Heparin will be discontinued and 2-D echo report showed normal LV function. No fever no chills. No chest pain or shortness of breath. No other acute overnight issues. 05/06/2017 Patient denied any new complaints today. Otherwise more awake and oriented. Anticipate discharged to [facility] home tomorrow. Blood pressure is fairly controlled 05/07/2017. Patient denied any new complaints today. Her blood pressure is fairly controlled. Otherwise patient is stable to be transferred to [facility] home. Patient was started on aspirin and statins. On metoprolol changed to Coreg. Added Norvasc for better blood pressure control. Heparin drip continued for 48 hours and discontinued.. 2-D echocardiogram showed normal LV function. Patient is stable to be discharged to [facility] home. Physical examination Patient is lying in the bed comfortably, no acute distress, awake alert and oriented. HEENT: Normocephalic. Neck is supple. Pupils reactive. Nostrils clear. Oral cavity is moist. Ears reveal no drainage. Neck reveals no JVD, carotid bruits, or thyromegaly. CHEST EXAMINATION: Trachea is central. Symmetrical expansion. Lung de paz clear to auscultation and percussion. CARDIAC: Normal S1, S2 with no gallops. No murmurs ABDOMEN: Soft. Bowel sounds normal. No organomegaly. No abdominal bruits. Extremities: reveal no edema. No clubbing or cyanosis Neurologically awake, alert, oriented x2 with well-coordinated movements. No focal deficits noted Skin: No rash or skin lesions. Psychiatric: Cooperative. Could not be assessed completely Musculoskeletal: No joint swelling or deformity. Normal range of motion. Vital Signs 05/02/17 05/02/17 05/02/17 19:55 21:00 22:00 Temperature 98.3 F 98.6 F Pulse Rate 80 59 L 60 Pulse Rate [ Pulse Oximetery ] Respiratory 20 20 20 Rate Blood Pressure 146/83 125/78 145/76 Blood Pressure [Right Arm] O2 Sat by Pulse 93 L 95 96 Oximetry 05/02/17 05/03/17 05/03/17 23:00 00:00 01:00 Temperature Pulse Rate 58 L 45 L 45 L Pulse Rate [ Pulse Oximetery ] Respiratory 20 22 20 Rate Blood Pressure 134/89 126/60 129/66 Blood Pressure [Right Arm] O2 Sat by Pulse 96 94 L 97 Oximetry 05/03/17 05/03/17 05/03/17 02:00 03:13 04:00 Temperature Pulse Rate 46 L 48 L 45 L Pulse Rate [ Pulse Oximetery ] Respiratory 15 18 15 Rate Blood Pressure 119/61 125/65 125/69 Blood Pressure [Right Arm] O2 Sat by Pulse 94 L 96 95 Oximetry 05/03/17 05/03/17 05/03/17 05:35 06:37 07:50 Temperature 97.3 F L Pulse Rate 53 L 58 L Pulse Rate [ 58 L Pulse Oximetery ] Respiratory 18 18 16 Rate Blood Pressure 138/73 127/52 Blood Pressure 149/77 [Right Arm] O2 Sat by Pulse 96 98 96 Oximetry 05/03/17 05/03/17 05/03/17 10:40 16:10 20:00 Temperature 97.6 F 98.0 F Pulse Rate Pulse Rate [ 55 L 56 L 60 Pulse Oximetery ] Respiratory 16 16 16 Rate Blood Pressure Blood Pressure 173/85 139/67 149/103 [Right Arm] O2 Sat by Pulse 95 92 L 93 L Oximetry 05/03/17 05/04/17 05/04/17 21:00 00:00 04:00 Temperature 97.5 F L 97.6 F Pulse Rate Pulse Rate [ 51 L 46 L 46 L Pulse Oximetery ] Respiratory 16 16 16 Rate Blood Pressure Blood Pressure 159/76 132/68 132/65 [Right Arm] O2 Sat by Pulse 93 L 98 Oximetry 05/04/17 05/04/17 05/04/17 09:00 12:45 17:15 Temperature 97.4 F L 97.7 F Pulse Rate Pulse Rate [ 52 L 53 L 54 L Pulse Oximetery ] Respiratory 16 16 16 Rate Blood Pressure Blood Pressure 119/58 163/71 132/67 [Right Arm] O2 Sat by Pulse 92 L 94 L 95 Oximetry 05/04/17 05/05/17 05/05/17 20:00 00:00 03:41 Temperature 97.0 F L 97.7 F 97.7 F Pulse Rate Pulse Rate [ 79 57 L 51 L Pulse Oximetery ] Respiratory 20 16 16 Rate Blood Pressure Blood Pressure 171/86 164/74 164/74 [Right Arm] O2 Sat by Pulse 92 L 94 L 94 L Oximetry 05/05/17 05/05/17 05/05/17 08:00 09:35 11:33 Temperature 97.7 F 97.7 F Pulse Rate Pulse Rate [ 52 L 68 51 L Pulse Oximetery ] Respiratory 18 18 Rate Blood Pressure Blood Pressure 137/65 138/65 [Right Arm] O2 Sat by Pulse 95 95 Oximetry 05/05/17 05/05/17 05/06/17 15:23 18:49 00:00 Temperature 97.1 F L 97.1 F L 97.8 F Pulse Rate Pulse Rate [ 51 L 78 67 Pulse Oximetery ] Respiratory 18 18 18 Rate Blood Pressure Blood Pressure 148/68 162/87 155/71 [Right Arm] O2 Sat by Pulse 96 96 Oximetry 05/06/17 05/06/17 05/06/17 04:00 08:00 11:18 Temperature 97.0 F L 98.6 F 98.6 F Pulse Rate Pulse Rate [ 66 64 63 Pulse Oximetery ] Respiratory 20 18 18 Rate Blood Pressure Blood Pressure 140/72 179/85 178/79 [Right Arm] O2 Sat by Pulse 96 96 Oximetry 05/06/17 05/06/17 05/07/17 16:00 20:00 00:00 Temperature 98.5 F 96.8 F L 97.0 F L Pulse Rate Pulse Rate [ 61 56 L 56 L Pulse Oximetery ] Respiratory 18 18 20 Rate Blood Pressure Blood Pressure 125/65 139/73 124/63 [Right Arm] O2 Sat by Pulse 96 92 L Oximetry 05/07/17 05/07/17 05/07/17 04:00 08:00 12:00 Temperature 96.0 F L 97 F L Pulse Rate Pulse Rate [ 55 L 69 71 Pulse Oximetery ] Respiratory 18 16 16 Rate Blood Pressure Blood Pressure 117/58 118/65 120/61 [Right Arm] O2 Sat by Pulse 92 L 96 93 L Oximetry Patient Condition at Discharge: Serious Plan - Discharge Summary Discharge Rx Participant: No New Discharge Prescriptions: New amLODIPine [Norvasc] 10 mg PO DAILY #30 tab Atorvastatin [Lipitor] 40 mg PO HS #30 tablet Carvedilol [Coreg] 3.125 mg PO BID-W/MEALS #60 tab Continue traMADol HCL [Ultram] 50 mg PO BID PRN PRN Reason: Pain hydrOXYzine HCL [Atarax] 50 mg PO Q6H PRN PRN Reason: Anxiety Venlafaxine HCl [Effexor XR] 75 mg PO DAILY Diazepam [Valium] 5 mg PO BID PRN PRN Reason: Anxiety Mirtazapine [Remeron] 15 mg PO HS Memantine [Namenda] 10 mg PO BID Levothyroxine Sodium [Synthroid] 25 mcg PO DAILY Haloperidol Decanoate [Haldol D] 100 mg IM QMONTH Gabapentin [Neurontin] 600 mg PO TID Donepezil [Aricept] 10 mg PO HS Colloidal Oatmeal [Eucerin Eczema Relief] 1 applic TOPICAL DAILY@1999 Aspirin 81 mg PO DAILY Discontinued Hydrochlorothiazide [Hydrodiuril] 25 mg PO DAILY Venlafaxine HCl [Effexor XR] 150 mg PO DAILY QUEtiapine [SEROquel] 100 mg PO HS NIFEdipine [Procardia XL] 30 mg PO DAILY Discharge Medication List Aspirin 81 mg PO DAILY 05/02/17 [History] Colloidal Oatmeal [Eucerin Eczema Relief] 1 applic TOPICAL DAILY@199905/02/17 [ History] Diazepam [Valium] 5 mg PO BID PRN 05/02/17 [History] Donepezil [Aricept] 10 mg PO HS 05/02/17 [History] Gabapentin [Neurontin] 600 mg PO TID 05/02/17 [History] Haloperidol Decanoate [Haldol D] 100 mg IM QMONTH 05/02/17 [History] Levothyroxine Sodium [Synthroid] 25 mcg PO DAILY 05/02/17 [History] Memantine [Namenda] 10 mg PO BID 05/02/17 [History] Mirtazapine [Remeron] 15 mg PO HS 05/02/17 [History] Venlafaxine HCl [Effexor XR] 75 mg PO DAILY 05/02/17 [History] hydrOXYzine HCL [Atarax] 50 mg PO Q6H PRN 05/02/17 [History] traMADol HCL [Ultram] 50 mg PO BID PRN 05/02/17 [History] Atorvastatin [Lipitor] 40 mg PO HS #30 tablet 05/07/17 [Rx] Carvedilol [Coreg] 3.125 mg PO BID-W/MEALS #60 tab 05/07/17 [Rx] amLODIPine [Norvasc] 10 mg PO DAILY #30 tab 05/07/17 [Rx] Follow up Appointment(s)/Referral(s): Woody Stover MD [Primary Care Provider] - 1-2 days (Visiting physicians.) Patient Instructions/Handouts: Myocardial Infarction (DC) Discharge Disposition: TRANSFER TO SNF/ECF
== END 2017-05-07 15:46 | DRG 281 ==
LOC: EC 19:49 → EEVIPCON 20:10 → 6SEL 20:10
PROVIDERS: ADMIT Hospitalist; ATTEND Hospitalist
DX: I21.4 Non-ST elevation (NSTEMI) myocardial infarction (principal); G45.9 Transient cerebral ischemic attack, unspecified; F03.90 Unspecified dementia, unspecified severity, without behavioral disturbance, psychotic disturbance, mood disturbance, and anxiety; E66.01 Morbid (severe) obesity due to excess calories; E78.5 Hyperlipidemia, unspecified; F32.9 Major depressive disorder, single episode, unspecified; I10 Essential (primary) hypertension; I25.10 Atherosclerotic heart disease of native coronary artery without angina pectoris; G89.29 Other chronic pain; M54.5 Low back pain; F41.9 Anxiety disorder, unspecified; Z68.35 Body mass index [BMI] 35.0-35.9, adult; Z79.82 Long term (current) use of aspirin; Z79.899 Other long term (current) drug therapy; Z85.3 Personal history of malignant neoplasm of breast; Z87.891 Personal history of nicotine dependence; Z90.710 Acquired absence of both cervix and uterus; Z88.8 Allergy status to other drugs, medicaments and biological substances; Z91.048 Other nonmedicinal substance allergy status
CPT/HCPCS: 80048; 80053; 80061; 81001; 82550; 82553; 83690; 84484; 85025; 85049; 85379; 85610; 85730; 87077; 87086; 87186; 93005; 93306; 93880; 95819; 96365; 96366; 99285